=== PATIENT | male | born 1970 | race Caucasian/White ===

== ENCOUNTER 2018-11-26 08:00 | Emergency (ER) | payer MEDICAID ==
[~2018-11-26] VITALS: Wt 90.0 kg
[2018-11-26 08:00] VITALS: BP 137/78; PULSE 68; RESP 17
[2018-11-26] MEDS ORDERED: IBUPROFEN 600 MG TAB PO ONE (08:30)
[2018-11-26] MEDS ORDERED: IBUP-1542 PO (08:48)
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
== END 2018-11-26 09:13 | disposition home or self-care (01) ==
LOC: FTE 08:00
DX: M79.601 Pain in right arm (principal)
CPT/HCPCS: 73090; 73130; Z7502; Z7610